=== PATIENT | female | born 1980 | race Two or more races ===

== ENCOUNTER → 2024-12-24 | Outpatient (BNVA) | payer MEDICAID, SELFPAY | END | disposition home or self-care (01) | PROVIDERS: PCP Nurse Practitioner Family; Referring Provider Nurse Practitioner Family; Visit Provider Nurse Practitioner Family | DX: Z12.31 Encounter for screening mammogram for malignant neoplasm of breast (principal); Z30.011 Encounter for initial prescription of contraceptive pills | CPT/HCPCS: 99213 ==

== ENCOUNTER → 2025-01-19 | Outpatient (BNVA) | payer MEDICAID, SELFPAY | END | disposition home or self-care (01) | PROVIDERS: PCP Nurse Practitioner Family; Referring Provider Nurse Practitioner Family; Visit Provider Nurse Practitioner Family | DX: N76.0 Acute vaginitis (principal); Z12.4 Encounter for screening for malignant neoplasm of cervix | CPT/HCPCS: 81001; 81025; 99215; Q0091 ==

== ENCOUNTER → 2025-02-07 | Outpatient (BNVA) | payer MEDICAID, SELFPAY | END | disposition home or self-care (01) | PROVIDERS: PCP Nurse Practitioner Family; Referring Provider Nurse Practitioner Family; Visit Provider Nurse Practitioner Family | DX: Z71.2 Person consulting for explanation of examination or test findings (principal) | CPT/HCPCS: 99212; G0463 ==

== ENCOUNTER → 2025-02-11 | Outpatient (CLI) | payer MEDICAID, SELFPAY ==
--- NOTE | 2025-02-11 08:45 | XR_ITS ---
Examination: Screening digital mammography, bilateral Computer aided detection 3-D breast Tomosynthesis, bilateral Date and time of exam: February 11, 2025 0823 hours Indication: Screening Technique: Nonmagnified MLO, CC views of the breasts to been obtained, reconstructed from 3-D Tomosynthesis images. R2 computer aided detection program utilized for evaluation of suspicious masses and/or abnormal calcifications. 3-D Tomosynthesis images obtained. Findings: Scattered areas of fibroglandular density 12 mm focal asymmetry indistinct margins outer right breast CC view, 8.5 cm from the nipple Benign calcifications Impression: BI-RADS Category 0: Incomplete: Need additional imaging evaluation Recommend follow-up spot tomographic views upper outer quadrant right breast of 12 mm focal asymmetry indistinct margins outer right breast CC view, right breast sonography to complete the workup
== END | disposition home or self-care (01) ==
LOC: CDIM 08:17
PROVIDERS: Referring Provider Nurse Practitioner Family; Visit Provider Nurse Practitioner Family
DX: Z12.31 Encounter for screening mammogram for malignant neoplasm of breast (principal); N64.89 Other specified disorders of breast
CPT/HCPCS: 77063; 77067

== ENCOUNTER → 2025-02-18 | Outpatient (BNVA) | payer MEDICAID, SELFPAY | END | disposition home or self-care (01) | PROVIDERS: PCP Nurse Practitioner Family; Referring Provider Nurse Practitioner Family; Visit Provider Nurse Practitioner Family | DX: Z12.31 Encounter for screening mammogram for malignant neoplasm of breast (principal); Z71.2 Person consulting for explanation of examination or test findings | CPT/HCPCS: 99212; G0463 ==

== ENCOUNTER → 2025-03-16 | Outpatient (CLI) | payer MEDICAID, SELFPAY ==
--- NOTE | 2025-03-16 13:00 | XR_ITS ---
Examination: Breast ultrasound, unilateral, right complete Date and time of exam: March 16, 2025 1622 hours INDICATIONS: Mammogram February 11, 2025 12 mm focal asymmetry outer right breast CC view 8.5 cm from the nipple Technique: Real-time bolanos scale ultrasonographic imaging performed right breast including all 4 quadrants as well as nipple retroareolar and axillary region. Findings: 9:00 nodule lobular margins 6 x 5 mm IMPRESSION: BI-RADS Category 3: Probably benign findings One additional 6 month right breast sonogram follow-up is needed to document stability of 9:00 nodule described above
--- NOTE | 2025-03-16 13:30 | XR_ITS ---
Examination: Diagnostic digital mammography, unilateral, right Computer aided detection 3-D breast Tomosynthesis, unilateral Date and time of exam: March 16, 2025 1346 hours Comparison February 11, 2025 INDICATIONS: Mammogram February 11, 2025 12 mm focal asymmetry upper outer quadrant right breast Technique: Nonmagnified MLO, CC views of the right breast have been obtained, reconstructed from 3-D Tomosynthesis images. R2 computer aided detection program utilized for evaluation of suspicious masses and/or abnormal calcifications. 3-D Tomosynthesis images obtained. Findings: Scattered areas of fibroglandular density 6 mm nodule upper outer right breast circumscribed Impression: BI-RADS category 3: Probably benign findings One additional 6 month right mammogram follow-up is needed to document stability of nodule described above
== END | disposition home or self-care (01) ==
LOC: CDIM 13:01
PROVIDERS: PCP Nurse Practitioner Family; Referring Provider Nurse Practitioner Family; Visit Provider Nurse Practitioner Family
DX: R92.331 Mammographic heterogeneous density, right breast (principal); N63.11 Unspecified lump in the right breast, upper outer quadrant; N63.15 Unspecified lump in the right breast, overlapping quadrants
CPT/HCPCS: 76641; 77061; 77065; G0279

== ENCOUNTER → 2025-03-23 | Outpatient (BNVA) | payer MEDICAID, SELFPAY | END | disposition home or self-care (01) | PROVIDERS: PCP Nurse Practitioner Family; Referring Provider Nurse Practitioner Family; Visit Provider Nurse Practitioner Family | DX: Z71.2 Person consulting for explanation of examination or test findings (principal); Z12.31 Encounter for screening mammogram for malignant neoplasm of breast; N63.10 Unspecified lump in the right breast, unspecified quadrant | CPT/HCPCS: 99212; G0463 ==

== ENCOUNTER 2025-05-01 10:42 | Emergency (ER) | payer MEDICAID, SELFPAY ==
[2025-05-01 11:04] VITALS: BP 149/82; PULSE 84; RESP 18; TEMP 36.6; O2SAT 100; BMI 32.1
--- NOTE | 2025-05-01 11:16 | XR_ITS ---
Examination: PA lateral chest 2 views Technique: Upright PA lateral chest 2 views Date and time: May 01, 2025, 11:21 AM Indications: Chest pain today. Findings: Normal heart size. Lungs are clear. The osseous structures are intact Impression: No active disease
--- NOTE | 2025-05-01 11:17 | PD.EDRME ---
Rapid Medical Screening Exam RME Arrival date/time: 05/01/25 10:42 This is a 45-year-old female that comes in with complaints of feeling faint like she is going to pass out, dizzy, and felt like she had some palpitations today. Patient states she feels faint and dizzy when she lays down. Patient also reports that she felt like her heart was beating out of the side of her chest. She has a history of hyperlipidemia. I have greeted and performed a focused initial assessment of this patient. Initial appropriate labs ordered at this time. A comprehensive ED assessment and evaluation of the patient and analysis of all test and completion of medical decision making process will be conducted by additional ED provider. Chief Complaint: Dizziness Time Seen by Provider: 05/01/25 11:05 Vital signs: Vital Signs Temperature 97.8 F 05/01/25 11:04 Pulse Rate 84 05/01/25 11:04 Respiratory Rate 18 05/01/25 11:04 Blood Pressure 149/82 H 05/01/25 11:04 Pulse Oximetry (%) 100 05/01/25 11:04 Oxygen Delivery Method Room Air 05/01/25 11:04
--- NOTE | 2025-05-01 11:40 | EDNOTE_ITS ---
ED Dizzyness RME/HPI General Chief Complaint: Dizziness Stated Complaint: WEAKNESS/DIZZINESS/HEART PALPITATIONS Time Seen by Provider: 05/01/25 11:05 Arrival date/time: 05/01/25 10:42 Limitations: no limitations RME / HPI RME / HPI Narrative: 05/01/25 10:42 This is a 45-year-old female that comes in with complaints of feeling faint like she is going to pass out, dizzy, and felt like she had some palpitations today. Patient states she feels faint and dizzy when she lays down. Patient also reports that she felt like her heart was beating out of the side of her chest. She has a history of hyperlipidemia. I have greeted and performed a focused initial assessment of this patient. Initial appropriate labs ordered at this time. A comprehensive ED assessment and evaluation of the patient and analysis of all test and completion of medical decision making process will be conducted by additional ED provider. DR. CAMPBELL MAIN ED EVALUATION: 45 year old female with hyperlipidemia presents to the ED for evaluation of dizziness beginning at 07:30 AM after waking. Described dizziness as feeling ?drunk? with staggering to the left. States episode lasted approximately 30 minutes and was followed by palpitations and cold sweats. Her daughter observed that she appeared pale during the episode. While in the ED, the patient reports that all symptoms have completely resolved. She denies any prior history of vertigo or similar episodes. 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) GASTROINTESTINAL: Positive Gastrointestinal Disorders and Obesity REPRODUCTIVE: Positive Previous Pregnancies (X7) MUSCULOSKELETAL: Positive Musculoskeletal Disorders Family History FAMILY HISTORY: Positive Family Surgery (MOTHER); Negative Family Psychiatric Problems, Family Respiratory Disorders, Family Cardiac Disorders, Family Gastrointestinal Problems, Family Cancer or Family Anesthesia Reaction Surgical History SURGICAL: Positive Section (X5); Negative Cardiac Surgery or Pacemaker Social History SMOKING STATUS: Never smoker SECOND HAND EXPOSURE: No ED Exam General Limitations: Present no limitations General appearance: Present alert and in no apparent distress Head Head exam: Present atraumatic, normocephalic and normal inspection Eye Eye exam: Present normal appearance, PERRL and EOMI ENT ENT exam: Present normal exam, normal oropharynx and mucous membranes moist Neck Neck exam: Present normal inspection, full ROM and trachea midline Chest Chest inspection: Present normal inspection and symmetric chest wall rise Respiratory Respiratory exam: Present normal lung sounds bilaterally Cardiovascular Cardiovascular exam: Present regular rate, normal rhythm and normal heart sounds Abdominal Exam Abdominal exam: Present soft and normal bowel sounds Extremities Exam Extremities exam: Present normal inspection and full ROM Back Exam Back exam: Present normal inspection and full ROM Neurological Exam Neurological exam: Present alert, oriented X3, CN II-XII intact and other (Ambulatory without assistance ) Psychiatric Psychiatric exam: Present normal affect and normal mood Skin Skin exam: Present warm, dry, intact and normal color Course Quality Measures none Orders Category Date Time Status EKG (ED ONLY) *Do not use* NOW Care 05/01/25 11:[address] head/brain wo con Stat Exams 05/01/25 11:39 Completed EKG (ED Only) Stat Exams 05/01/25 11:16 Ordered XR chest 2V Stat Exams 05/01/25 11:16 Completed BNP [B-Type Natriuretic Peptide] Stat Lab 05/01/25 12:12 Completed CBC Stat Lab 05/01/25 12:12 Completed Comprehensive Metabolic Panel Stat Lab 05/01/25 12:12 Completed HCG Qualitative,Urine Stat Lab 05/01/25 13:02 Completed Troponin I Stat Lab 05/01/25 12:12 Completed Urinalysis, C/S if Indicated Stat Lab 05/01/25 13:02 Completed Vital Signs Vital signs: Vital Signs Temperature 97.8 F 05/01/25 11:04 Pulse Rate 84 05/01/25 11:04 Respiratory Rate 18 05/01/25 11:04 Blood Pressure 149/82 H 05/01/25 11:04 Pulse Oximetry (%) 100 05/01/25 11:04 Oxygen Delivery Method Room Air 05/01/25 11:04 Pulse ox is 100% on room air which is adequate. Dizziness MDM Narrative MDM Narrative:: Amanda Fournier, melanie scribing for and in the presence of Dr. Campbell. 45 year old female with history of hyperlipidemia presented to the ED for evaluation of dizziness that began at 7:30 AM after waking. She describes the dizziness as feeling drunk with staggering to the left, which lasted for a pproximately 30 minutes and was followed by palpitations and cold sweats. In the ED, the patient reports that all symptoms have completely resolved, and she denies any prior history of vertigo or similar episodes. She also denies any associated chest pain, shortness of breath, or neurological symptoms. CBC and CMP are within normal limits, Troponin is negative, EKG is unremarkable, with no evidence of arrhythmias or ischemic changes. Head CT and CXR negative for acute findings. Patient has remained stable through ED course and discharged with instructions to follow up with PMD. Patient data External records reviewed:: [facility] [place] previous records (I reviewed outpatient PCP visit from 03/23/2025 ) Clinical information provided by:: patient and family (daughter adds to hpi) Social determinants that could affect healthcare access:: none Patient has the following chronic illnesses:: hyperlipidemia How is presenting disease/condition affected by chronic disease/condition?: no chronic disease Evaluation data The following diagnostics were reviewed and interpreted by me:: lab results, radiology exam(s) and EKG tracing(s) (NSR, rate 84, no STEMI. ) Lab and/or radiology exams considered but not ordered:: None Interpretation Summary: Ordering Physician: Linette Bennett NP Date of Service: 05/01/25 Procedure(s): XR chest 2V Accession Number(s): [id number] cc: Balaji Mock MD; Linette Bennett NP~ Examination: PA lateral chest 2 views Technique: Upright PA lateral chest 2 views Date and time: May 01, 2025, 11:21 AM Indications: Chest pain today. Findings: Normal heart size. Lungs are clear. The osseous structures are intact Impression: No active disease Dictated By: Balaji Mock MD Signed By: <Electronically signed by Balaji Mock MD in OV> 05/01/25 1148 Ordering Physician: Franck Campbell MD Date of Service: 05/01/25 Procedure(s): CT head/brain wo con Accession Number(s): [id number] cc: Franck Campbell MD; Balaji Mock MD; Deja Tiwari ([facility])~ Examination: CT brain head without contrast. 2-D sagittal coronal reconstructions Date and time of exam:December 02, , 1158 hrs. Indication: Dizziness episodes this morning. Technique: Multiple CT axial sections of the brain have been obtained, 5 mm slice thickness. Contrast has not been administered. 2-D sagittal, coronal reconstructions have been obtained Low dose protocols were performed. One or more of the following dose reduction techniques were used; automated exposure control, adjustment of the mA and/or KV according to patient size, use of iterative reconstruction technique. Findings: No significant ventricular enlargement. Intra-axial or extra-axial hemorrhage density is not seen. No mass effect or midline shift Basal cisterns are not remarkable. Fourth ventricle is midline. Cranial vault intact. Impression: Negative for acute hemorrhage, mass effect or midline shift Dictated By: Balaji Mock MD Signed By: <Electronically signed by Balaji Mock MD in OV> 05/01/25 1255 Medications / Prescriptions Medications or Prescriptions considered but not ordered:: None Medication administrations:: None Consultations Consultation(s) initiated? (list below): No Diagnosis Most likely diagnosis given after review of the tests above:: Benign paroxysmal positional vertigo panic attack Admission Indicated Admission indicated?: not indicated Admission Request Was there a request for admission?: No Disposition Plan Disposition Plan: Discharge Discharge Attestation Discharge Attestation: The patient and all family members were given an opportunity to ask questions and understood the discharge instructions. Discharge instructions specifically effects, indications for sooner follow up or return to the emergency department, and the expected course of current diagnosis. Patient condition: Stable Discharge Plan Plan Patient Disposition: HOME (Self Care) Patient condition on transfer: Stable Prescriptions/Referrals Prescriptions/Med Rec: New meclizine 25 mg tablet 25 mg PO TID PRN (Reason: dizziness) Qty: 10 0RF No Action norgestimate-ethinyl estradiol [Estarylla] 0.25-35 mg-mcg tablet 1 tab PO QDAY Qty: 84 1RF Referrals: Karie [facility] [employer],Deja Waggoner [employer] [Primary Care Provider] - In 1 week Problem List Clinical Impression: BPPV (benign paroxysmal positional vertigo), Panic attack Patient/Caregiver Discharge Instructions Discharge Activity: activity as tolerated Education Materials: Vestibular Rehabilitation Therapy, Vertigo Staying Safe, BPPV, ED Anxiety Reaction Additional Instructions: Follow-up with your primary care doctor in 3 to 5 days for recheck. You can return to the emergency department sooner if symptoms worsen or if you notice any new, concerning issues. Print Language: Faroese Stand Alone Forms: Cherise Award Info., Patient Portal Info Letter
[2025-05-01 12:24] LABS: Basophils # (Auto) 0.0 Thou/mm3 (0.0-0.2); Basophils % (Auto) 0 % (0-2.5); Eosinophils # (Auto) 0.0 Thou/mm3 (0.0-0.5); Eosinophils % (Auto) 0 % (0-10); Hematocrit 39.6 % (36.0-46.0); Hemoglobin 13.4 g/dL (12.0-16.0); Immature Granulocytes Auto 0.04 Thou/mm3 (0.00-0.00); Lymphocytes # (Auto) 1.6 Thou/mm3 (1.0-4.8); Lymphocytes % (Auto) 16 % (10-50); Mean Corpuscular HGB Conc 33.8 g/dl (31.0-37.0); Mean Corpuscular Hemoglobin 29.9 pg (25.0-35.0); Mean Corpuscular Volume 88 fL (80-100); Monocytes # (Auto) 0.5 Thou/mm3 (0.0-0.8); Monocytes % (Auto) 4 % (0-12); Neutrophils # (Auto) 8.3 Thou/mm3 (1.8-7.7); Neutrophils % (Auto) 79 % (37-80); Nucleated Red Blood Cell # 0.00 Thou/mm3 (0.00-0.00); Nucleated Red Blood Cell % 0 /100 WBC (0); Platelet Count 289 Thou/mm3 (140-440); RDW Standard Deviation 44.5 fL (36.4-46.3); Red Blood Count 4.48 Miln/mm3 (4.00-5.20); White Blood Count 10.5 Thou/mm3 (3.6-11.0)
[2025-05-01 12:42] LABS: B-Type Natriuretic Peptide 26 pg/mL (0-100)
[2025-05-01 12:44] LABS: Alanine Aminotransferase 12 U/L (10-49); Albumin, Serum 4.3 gm/dL (3.5-5.0); Albumin/Globulin Ratio 1.6 (1.2-2.2); Alkaline Phosphatase 54 U/L (46-116); Anion Gap 11 (7-16); Aspartate Amino Transferase 24 U/L (0-34); BUN/Creatinine Ratio 11 Ratio (12-20); Bilirubin,Total 0.4 mg/dL (0.3-1.2); Blood Urea Nitrogen 8 mg/dL (9-23); Calcium 8.9 mg/dL (8.3-10.6); Calcium (Corrected) 8.9 mg/dL (8.5-10.1); Carbon Dioxide 20.8 mMol/L (20.0-31.0); Chloride 104 mMol/L (98-107); Creatinine (Component) 0.7 mg/dL (0.6-1.3); Estimated Creatinine Clearance 120.3 mL/min (>60); Globulin 2.7 gm/dL (2.3-3.5); Glucose 101 mg/dL (74-106); Osmolality,Calculated 270 (275-295); Potassium 4.3 mMol/L (3.4-5.1); Sodium 136 mMol/L (136-145); Total Protein 7.0 gm/dL (5.7-8.2); Troponin I < 0.002 ng/mL (0.0-0.045); eGFR > 60 See Note
[2025-05-01 13:06] LABS: Collection Type, Urine Voided
[2025-05-01 13:12] LABS: HCG Qualitative,Urine Negative
[2025-05-01 13:14] LABS: Bilirubin,Urine Negative (Negative); Blood,Urine 2+ (Negative); Clarity,Urine Clear (Clear/Hazy); Color,Urine Lt-Yellow (Lt Yel-Yel); Culture Indicated,Urine Not Indicated; Glucose, Urine Negative (Negative); Ketones,Urine Trace (Negative); Leukocyte Esterase,Urine Positive (Negative); Nitrite,Urine Negative (Negative); PH,Urine 6.5 (5.0-7.0); Protein,Urine Negative (Neg - Trace); RBC,Urine 4 /hpf (0-3); Specific Gravity,Urine 1.020 (1.001-1.035); Squamous Epithelial Cell,Urine 5 /hpf (0-5); Urobilinogen,Urine Negative mg/dL (0.0-1.0); WBC,Urine 5 /hpf (0-5)
[2025-05-01 14:14] VITALS: BP 135/91; PULSE 81; RESP 18; TEMP 36.8; O2SAT 96
== END 2025-05-01 14:16 | disposition home or self-care (01) ==
PROVIDERS: Nurse Practitioner Family; Emergency Provider Emergency Medicine; PCP Nurse Practitioner Family
DX: H81.10 Benign paroxysmal vertigo, unspecified ear (principal); F41.0 Panic disorder [episodic paroxysmal anxiety]; E78.5 Hyperlipidemia, unspecified
CPT/HCPCS: 36415; 70450; 71046; 80053; 81001; 81025; 83880; 84484; 85025; 99284

== ENCOUNTER → 2025-06-13 | Outpatient (BNVA) | payer MEDICAID, SELFPAY | END | disposition home or self-care (01) | PROVIDERS: PCP Nurse Practitioner Family; Referring Provider Nurse Practitioner Family; Visit Provider Nurse Practitioner Family | DX: Z00.01 Encounter for general adult medical examination with abnormal findings (principal); E66.09 Other obesity due to excess calories; Z30.41 Encounter for surveillance of contraceptive pills; Z71.3 Dietary counseling and surveillance; Z68.32 Body mass index [BMI] 32.0-32.9, adult | CPT/HCPCS: 99173; 99215 ==

== ENCOUNTER → 2025-06-23 | Outpatient (BNVA) | payer MEDICAID, SELFPAY | END | disposition home or self-care (01) | PROVIDERS: PCP Nurse Practitioner Family; Referring Provider Nurse Practitioner Family; Visit Provider Nurse Practitioner Family | DX: Z71.2 Person consulting for explanation of examination or test findings (principal); N39.0 Urinary tract infection, site not specified; R79.9 Abnormal finding of blood chemistry, unspecified | CPT/HCPCS: 99212; G0463 ==

== ENCOUNTER → 2025-06-30 | Outpatient (BNVA) | payer MEDICAID, SELFPAY | END | disposition home or self-care (01) | PROVIDERS: PCP Nurse Practitioner Family; Referring Provider Nurse Practitioner Family; Visit Provider Nurse Practitioner Family | DX: N39.0 Urinary tract infection, site not specified (principal); E66.9 Obesity, unspecified; Z68.32 Body mass index [BMI] 32.0-32.9, adult ==

== ENCOUNTER → 2025-07-07 | Outpatient (BNVA) | payer MEDICAID, SELFPAY | END | disposition home or self-care (01) | PROVIDERS: PCP Nurse Practitioner Family; Referring Provider Nurse Practitioner Family; Visit Provider Nurse Practitioner Family | DX: Z71.2 Person consulting for explanation of examination or test findings (principal); N39.0 Urinary tract infection, site not specified | CPT/HCPCS: 99212; G0463 ==

== ENCOUNTER → 2025-07-12 | Outpatient (BNVA) | payer MEDICAID, SELFPAY | END | disposition home or self-care (01) | PROVIDERS: PCP Nurse Practitioner Family; Referring Provider Nurse Practitioner Family; Visit Provider Nurse Practitioner Family | DX: Z71.3 Dietary counseling and surveillance (principal); Z12.11 Encounter for screening for malignant neoplasm of colon; J02.9 Acute pharyngitis, unspecified; R94.5 Abnormal results of liver function studies | CPT/HCPCS: 99213 ==

== ENCOUNTER → 2025-07-21 | Outpatient (BNVA) | payer MEDICAID, SELFPAY | END | disposition home or self-care (01) | PROVIDERS: PCP Nurse Practitioner Family; Referring Provider Nurse Practitioner Family; Visit Provider Nurse Practitioner Family | DX: Z71.2 Person consulting for explanation of examination or test findings (principal); K59.00 Constipation, unspecified; Z12.11 Encounter for screening for malignant neoplasm of colon | CPT/HCPCS: 99212; G0463 ==

== ENCOUNTER → 2025-08-09 | Outpatient (BNVA) | payer MEDICAID, SELFPAY | END | disposition home or self-care (01) | PROVIDERS: PCP Nurse Practitioner Family; Referring Provider Nurse Practitioner Family; Visit Provider Nurse Practitioner Family | DX: Z71.3 Dietary counseling and surveillance (principal); Z23 Encounter for immunization; E66.09 Other obesity due to excess calories; Z68.37 Body mass index [BMI] 37.0-37.9, adult; K59.00 Constipation, unspecified | CPT/HCPCS: 90471; 90686; 99213 ==

== ENCOUNTER → 2025-09-02 | Outpatient (BNVA) | payer MEDICAID, SELFPAY | END | disposition home or self-care (01) | PROVIDERS: PCP Nurse Practitioner Family; Referring Provider Nurse Practitioner Family; Visit Provider Nurse Practitioner Family | DX: Z71.3 Dietary counseling and surveillance (principal); E66.09 Other obesity due to excess calories; Z68.37 Body mass index [BMI] 37.0-37.9, adult; H10.9 Unspecified conjunctivitis; T78.40XA Allergy, unspecified, initial encounter; R92.331 Mammographic heterogeneous density, right breast | CPT/HCPCS: 96372; 99214; J3301 ==

== ENCOUNTER → 2025-09-27 | Outpatient (BNVA) | payer MEDICAID, SELFPAY | END | disposition home or self-care (01) | PROVIDERS: PCP Nurse Practitioner Family; Referring Provider Nurse Practitioner Family; Visit Provider Nurse Practitioner Family | DX: Z71.3 Dietary counseling and surveillance (principal); E66.09 Other obesity due to excess calories; Z68.37 Body mass index [BMI] 37.0-37.9, adult | CPT/HCPCS: 99213 ==

== ENCOUNTER → 2025-10-14 | Outpatient (BNVA) | payer MEDICAID, SELFPAY | END | disposition home or self-care (01) | PROVIDERS: PCP Nurse Practitioner Family; Referring Provider Nurse Practitioner Family; Visit Provider Nurse Practitioner Family | DX: R42 Dizziness and giddiness (principal); R10.9 Unspecified abdominal pain; Z71.3 Dietary counseling and surveillance; T50.995A Adverse effect of other drugs, medicaments and biological substances, initial encounter | CPT/HCPCS: 99214 ==

== ENCOUNTER → 2025-10-19 | Outpatient (BNVA) | payer MEDICAID, SELFPAY | END | disposition home or self-care (01) | PROVIDERS: PCP Nurse Practitioner Family; Referring Provider Nurse Practitioner Family; Visit Provider Nurse Practitioner Family | DX: Z71.2 Person consulting for explanation of examination or test findings (principal); R10.9 Unspecified abdominal pain; R42 Dizziness and giddiness; R51.9 Headache, unspecified | CPT/HCPCS: 99212; G0463 ==

== ENCOUNTER → 2025-10-24 | Outpatient (CLI) | payer MEDICAID, SELFPAY ==
--- NOTE | 2025-10-24 13:00 | XR_ITS ---
Examination: Breast ultrasound, unilateral, right complete Date and time of exam: October 24, 2025, 1427 hours INDICATIONS: Right breast sonogram 06/16/2025 9:00 nodule 6 x 5 mm Technique: Real-time bolanos scale ultrasonographic imaging performed right breast including all 4 quadrants as well as nipple retroareolar and axillary region. Findings: 10:00 cyst 6 x 5 mm No solid nodules IMPRESSION: BI-RADS Category 2: Benign findings
--- NOTE | 2025-10-24 13:30 | XR_ITS ---
Examination: Diagnostic digital mammography, unilateral, right Computer aided detection 3-D breast Tomosynthesis, unilateral Date and time of exam: 10/24/2025, 2:40 p.m. Comparisons: 03/16/2025 Indications: 6-month follow-up of probably benign right upper outer quadrant abnormality Technique: Nonmagnified MLO, CC views of the breast have been obtained, reconstructed from 3-D Tomosynthesis images. R2 computer aided detection program utilized for evaluation of suspicious masses and/or abnormal calcifications. 3-D Tomosynthesis images obtained. Technologist: Findings: There are scattered areas of fibroglandular density. No evidence of abnormal masses or suspicious calcifications. Impression: BI-RADS category 1: Negative findings (within normal) Recommend 1 year follow-up mammogram
== END | disposition home or self-care (01) ==
PROVIDERS: PCP Nurse Practitioner Family; Referring Provider Nurse Practitioner Family; Visit Provider Nurse Practitioner Family
DX: R92.311 Mammographic fatty tissue density, right breast (principal)
CPT/HCPCS: 76641; 77061; 77065; G0279